=== PATIENT | male | born 1980 | race Two or more races ===

== ENCOUNTER 2017-03-08 10:59 | Inpatient (IN) | payer MEDICAID ==
[~2017-03-08] VITALS: Ht 154.9 cm; Wt 63.5 kg
[2017-03-08 11:20] VITALS: BP 122/68
[2017-03-08 12:11] LABS: BILIRUBIN, URINE NEGATIVE (NEGATIVE); COLOR,URINE PALE YELLOW; GLUCOSE, URINE (UA) NEGATIVE (NEGATIVE); KETONES,URINE 3+ (NEGATIVE); LEUKOCYTE ESTERASE ,URINE 1+ (NEGATIVE); NITRITE,URINE NEGATIVE (NEGATIVE); PH,URINE 7 (4.5-8.0); PROTEIN,URINE NEGATIVE (NEGATIVE); UROBILINOGEN,URINE NORMAL MG/DL (0.0-1.0)
[2017-03-08 12:14] LABS: APPEARANCE,URINE SLIGHTLY CLOUDY; BASOPHILS % (AUTO) 0.7 % (0.0-2.0); EOSINOPHILS % (AUTO) 0.1 % (0.0-3.0); HEMATOCRIT 47.7 % (42.0-52.0); HEMOGLOBIN 16.8 G/DL (14.2-18.0); LYMPHOCYTES % (AUTO) 8.1 % (20.0-45.0); MEAN CORPUSCULAR VOLUME 94 FL (80-99); MONOCYTES % (AUTO) 8.3 % (1.0-10.0); NEUTROPHILS % (AUTO) 82.8 % (45.0-75.0); PLATELET COUNT 266 K/UL (150-450); RED BLOOD COUNT 5.06 M/UL (4.70-6.10); RED CELL DISTRIBUTION WIDTH 10.8 % (11.6-14.8); WHITE BLOOD COUNT 14.7 K/UL (4.8-10.8)
--- NOTE | 2017-03-08 12:34 | Emergency Room Report ---
History of Present Illness General Chief Complaint: Abdominal Pain Source: Patient Present Illness HPI 36-year-old male with no sig pmhx p/w abdominal pain 2 days. Patient states pain started gradually, localized to mid and right lower part and , non radiating, sharp in nature, intermittent. No relieving or exacerbating factors. Severity is 5/10. 2-3 episodes of watery non bloody diarrhea Denies nv Denies fever, chills. No hx of abdominal surgeries. No hx of endoscopies/colonoscopies. Allergies: Coded Allergies: No Known Allergies (Unverified , 03/08/17) Patient History Past Medical History: see triage record Past Surgical History: none Pertinent Family History: none Reviewed Nursing Documentation: PMH: Agreed, PSxH: Agreed Nursing Documentation-PMH Past Medical History: No Stated History Review of Systems All Other Systems: negative except mentioned in HPI Physical Exam Vital Signs Date Time Temp Pulse Resp B/P (MAP) Pulse Ox O2 Delivery O2 Flow Rate FiO2 03/08/17 11:02 98.1 101 18 136/85 100 Room Air Sp02 EP Interpretation: reviewed, normal General Appearance: normal inspection, well appearing, no apparent distress, alert, GCS 15, non-toxic Head: normocephalic, atraumatic Eyes: bilateral eye normal inspection, bilateral eye PERRL, bilateral eye EOMI ENT: normal ENT inspection, normal pharynx, normal voice, moist mucus membranes Neck: normal inspection, full range of motion, supple Respiratory: normal inspection, lungs clear, normal breath sounds, no respiratory distress, no retraction, no wheezing, speaking full sentences, chest symmetrical Cardiovascular #1: normal inspection, regular rate, rhythm, no edema, normal capillary refill Cardiovascular #2: 2+ radial (R), 2+ radial (L) Gastrointestinal: soft, non-distended, no guarding, other - Mid and right lower quadrant tenderness, voluntary guarding, no rebound Genitourinary: no CVA tenderness Musculoskeletal: normal inspection, back normal, normal range of motion, non- tender Neurologic: normal inspection, alert, oriented x3, responsive, motor strength/ tone normal, sensory intact, normal gait, speech normal Psychiatric: normal inspection, judgement/insight normal, memory normal Skin: normal inspection, normal color, no rash, warm/dry, well hydrated, normal turgor Medical Decision Making Diagnostic Impression: Primary Impression: Diverticulitis ER Course 36-year-old male with abdominal pain Differential Diagnosis: Gastritis, gastroenteritis, appendicitis, diverticulitis, SBO, UTI/pyelo Plan: Basic labs, ua, ekg pain control, IVF CT abdopelvis ER course: Patient received IVF, abx tachycardic 109 despite fluids abd exam still operator but not peritoneal received IV abx CT abdo pelvis: diverticulitis w/ microperforation Disposition: Patient is to be admitted to med surg Endorsed to Dr Gómez who has accepted patient for admission Surgery paged and made aware of patient Please note that this Emergency Department Report was dictated using [employer] System[employer]ulverizing and sifting operator technology software, occasionally this can lead to erroneous entry secondary to interpretation by the dictation equipment EKG Diagnostic Results EP Interpretation: Yes Rate: normal Rhythm: NSR ST Segments: No acute changes ASA given to patient: no Rhythm Strip EP Interpretation: Yes Rate: 102 Rhythm: NSR, no PVCs, no ectopy Laboratory Tests Test 03/08/17 11:50 White Blood Count 14.7 K/UL (4.8-10.8) H Red Blood Count 5.06 M/UL (4.70-6.10) Hemoglobin 16.8 G/DL (14.2-18.0) Hematocrit 47.7 % (42.0-52.0) Mean Corpuscular Volume 94 FL (80-99) Mean Corpuscular Hemoglobin 33.2 PG (27.0-31.0) H Mean Corpuscular Hemoglobin Concent 35.3 G/DL (32.0-36.0) Red Cell Distribution Width 10.8 % (11.6-14.8) L Platelet Count 266 K/UL (150-450) Mean Platelet Volume 6.3 FL (6.5-10.1) L Neutrophils (%) (Auto) 82.8 % (45.0-75.0) H Lymphocytes (%) (Auto) 8.1 % (20.0-45.0) L Monocytes (%) (Auto) 8.3 % (1.0-10.0) Eosinophils (%) (Auto) 0.1 % (0.0-3.0) Basophils (%) (Auto) 0.7 % (0.0-2.0) Urine Color Pale yellow Urine Appearance Slightly cloudy Urine pH 7 (4.5-8.0) Urine Specific [place] 1.005 (1.005-1.035) Urine Protein Negative (NEGATIVE) Urine Glucose (UA) Negative (NEGATIVE) Urine Ketones 3+ (NEGATIVE) H Urine Occult Blood 2+ (NEGATIVE) H Urine Nitrite Negative (NEGATIVE) Urine Bilirubin Negative (NEGATIVE) Urine Urobilinogen Normal MG/DL (0.0-1.0) Urine Leukocyte Esterase 1+ (NEGATIVE) H Urine RBC 5-10 /HPF (0 - 0) H Urine WBC 0-2 /HPF (0 - 0) Urine Squamous Epithelial Cells Occasional /LPF Urine Bacteria Occasional /HPF (NONE) Sodium Level 138 MMOL/L (136-145) Potassium Level 3.9 MMOL/L (3.5-5.1) Chloride Level 102 MMOL/L (98-107) Carbon Dioxide Level 25 MMOL/L (21-32) Anion Gap 11 mmol/L (5-15) Blood Urea Nitrogen 16 mg/dL (7-18) Creatinine 1.0 MG/DL (0.55-1.30) Estimate Glomerular Filtration Rate > 60 mL/min (>60) Glucose Level 100 MG/DL (74-106) Calcium Level 9.4 MG/DL (8.5-10.1) Total Bilirubin 1.0 MG/DL (0.2-1.0) Aspartate Amino Transferase (AST) 77 U/L (15-37) H Alanine Aminotransferase (ALT) 77 U/L (12-78) Alkaline Phosphatase 80 U/L (46-116) Total Protein 8.2 G/DL (6.4-8.2) Albumin 3.9 G/DL (3.4-5.0) Globulin 4.3 g/dL Albumin/Globulin Ratio 0.9 (1.0-2.7) L Lipase 99 U/L (73-393) CT/MRI/US Diagnostic Results CT/MRI/US Diagnostic Results : Imaging Test Ordered: CT abdo pelvis Impression Findings: There is a mid sigmoid diverticulum. This is surrounded by inflammation of the pericolonic fat, and there is questionably some extraluminal gas adjacent to the diverticulum. Is also considerable wall thickening of the sigmoid. No discrete fluid collection demonstrated. A small amount of fluid is seen within the pelvis. The appendix is normal. Contrast is seen throughout the entirety of the small bowel and well into the midtransverse colon. No small bowel wall thickening. No free intraperitoneal air. The distal esophagus, stomach, duodenum are unremarkable. The liver, gallbladder, bile ducts, pancreas, spleen, adrenals, kidneys are unremarkable. No renal or ureteral calculi, hydronephrosis, or hydroureter. The bladder is unremarkable. No pelvic mass or adenopathy. No retroperitoneal or mesenteric mass or adenopathy. There is a calcified granuloma at the right lung base. The right lung demonstrate posterior dependent atelectatic changes. The bones are unremarkable. Impression: Findings consistent with acute diverticulitis. There is evidence of microperforation, but no evidence of peridiverticular abscess Small amount free pelvic fluid, likely related to the above Evidence of old granulomatous disease of the right Findings discussed by phone with Dr. Dale in the emergency room at the time of interpretation Last Vital Signs Date Time Temp Pulse Resp B/P (MAP) Pulse Ox O2 Delivery O2 Flow Rate FiO2 03/08/17 11:02 98.1 101 18 136/85 100 Room Air Disposition: ADMITTED INPATIENT Condition: Serious Referrals: NOT CHOSEN GORDON/,REFERRING (PCP) Domenic Dale M.D. Mar 08, 2017 12:34
[2017-03-08 12:35] LABS: ALANINE AMINOTRANSFERASE 77 U/L (12-78); ALBUMIN 3.9 G/DL (3.4-5.0); ALBUMIN/GLOBULIN RATIO 0.9 (1.0-2.7); ALKALINE PHOSPHATASE 80 U/L (46-116); ANION GAP 11 mmol/L (5-15); ASPARTATE AMINO TRANSFERASE 77 U/L (15-37); BLOOD UREA NITROGEN 16 mg/dL (7-18); CALCIUM 9.4 MG/DL (8.5-10.1); CARBON DIOXIDE 25 MMOL/L (21-32); CHLORIDE 102 MMOL/L (98-107); POTASSIUM 3.9 MMOL/L (3.5-5.1); SODIUM 138 MMOL/L (136-145)
[2017-03-08 13:00] VITALS: BP 113/67
[2017-03-08] MEDS ORDERED: cefTRIAXone 1 GM in NS 55 ML IVPB ONE (14:15)
--- NOTE | 2017-03-08 14:17 | Diagnostic Imaging Report ---
Clinical Indication: Abdominal pain x2 days, localized to mid and right lower quadrant, sharp in nature, intermittent, history episode of watery nonbloody diarrhea Technique: No oral contrast utilized, per emergency room physician request IV administration nonionic contrast. Venous phase spiral acquisition obtained through the abdomen and pelvis. Multiplanar reconstructions were generated. Total dose length product 597 mGycm. CTDIvol(s) 11 mGy. Dose reduction achieved using automated exposure control Comparison: None Findings: There is a mid sigmoid diverticulum. This is surrounded by inflammation of the pericolonic fat, and there is questionably some extraluminal gas adjacent to the diverticulum. Is also considerable wall thickening of the sigmoid. No discrete fluid collection demonstrated. A small amount of fluid is seen within the pelvis. The appendix is normal. Contrast is seen throughout the entirety of the small bowel and well into the midtransverse colon. No small bowel wall thickening. No free intraperitoneal air. The distal esophagus, stomach, duodenum are unremarkable. The liver, gallbladder, bile ducts, pancreas, spleen, adrenals, kidneys are unremarkable. No renal or ureteral calculi, hydronephrosis, or hydroureter. The bladder is unremarkable. No pelvic mass or adenopathy. No retroperitoneal or mesenteric mass or adenopathy. There is a calcified granuloma at the right lung base. The right lung demonstrate posterior dependent atelectatic changes. The bones are unremarkable. Impression: Findings consistent with acute diverticulitis. There is evidence of microperforation, but no evidence of peridiverticular abscess Small amount free pelvic fluid, likely related to the above Evidence of old granulomatous disease of the right Findings discussed by phone with Dr. Dale in the emergency room at the time of interpretation The CT scanner at [facility] is accredited by the [employer] and the scans are performed using protocols designed to limit radiation exposure to as low as reasonably achievable to attain images of sufficient resolution adequate for diagnostic evaluation.
[2017-03-08 15:00] VITALS: BP 114/69
[2017-03-08 16:43] VITALS: BP 116/73
[2017-03-08 16:50] VITALS: BP 113/59
[2017-03-08] MEDS ORDERED: ACETAMINOPHEN120 MG PO (17:10)
[2017-03-08] MEDS: Morphine Sulfate 4mg/ml Inj IVP PRN (17:44)
[2017-03-08] MEDS ORDERED: Flu Vaccine Quadrivalent 0.5ml IM ONE (18:00)
[2017-03-08] MEDS ORDERED: Acetaminophen 650 MG SUPP RECTAL PRN ×2 (18:45→19:00)
[2017-03-08] MEDS: D5 1/2NS w/KCl 20mEq 1,000 ML IV SCH (18:46)
--- NOTE | 2017-03-08 19:30 | History and Physical Report ---
DATE OF ADMISSION: 03/08/2017 CHIEF COMPLAINT/REASON FOR HOSPITALIZATION: The patient is admitted for abdominal pain. HISTORY OF PRESENT ILLNESS: The patient has abdominal pain for one to two days with about five loose diarrhea stools today and seven yesterday. He came to the emergency room and found to have mild sigmoid diverticulum surrounded by inflammation of the paracolonic fat and questionably some extraluminal gas adjacent to the diverticulum, but no free air. The patient is admitted for treatment of probable diverticulitis. He certainly has generally been in good health. PAST SURGICAL HISTORY: None. HOSPITALIZATIONS: None. MEDICATIONS: None. ALLERGIES: None known. HABITS: He is a nonsmoker. He drinks about two or three beers three times a week. SOCIAL HISTORY: He is and has children in [facility], last travel was August to September 2016 to [facility]. SYSTEM REVIEW: Negative except for the acute problem. PHYSICAL EXAMINATION: GENERAL: The patient is an alert, well-developed man, in no acute distress. He is seen after pain medication. HEAD, EYES, EARS, NOSE, AND THROAT: Sclerae are nonicteric. Ocular motions are intact in all directions. Oral mucosa moist. NECK: No adenopathy or thyroid enlargement. LUNGS: Clear. HEART: Regular rhythm. No murmur. ABDOMEN: Soft and nondistended. Liver and spleen not palpable. There is mild diffuse tenderness in the right lower quadrant and left lower quadrant, may be very early rebound tenderness. GENITOURINARY: Penis and testes normal. EXTREMITIES: No edema, cyanosis, or clubbing. PERTINENT LABORATORIES: White count 14.7 and hemoglobin 16.8. Electrolytes normal. AST is 77 and ALT 77. IMPRESSION: 1. Acute diverticulitis with microperforation. 2. Pain management. 3. Microscopic hematuria, 5-10 red cells per high-power field. PLAN: The patient will be kept NPO, hydrated. Start him on empiric antibiotics and comfort measures. Surgical consultation has been called. Vinh Gómez M.D. DR: LORENZO JOB#: [id number] CC:
--- NOTE | 2017-03-08 19:30 | History and Physical Report ---
DATE OF ADMISSION: 03/08/2017 CHIEF COMPLAINT/REASON FOR HOSPITALIZATION: The patient is admitted for abdominal pain. HISTORY OF PRESENT ILLNESS: The patient has abdominal pain for one to two days with about five loose diarrhea stools today and seven yesterday. He came to the emergency room and found to have mild sigmoid diverticulum surrounded by inflammation of the paracolonic fat and questionably some extraluminal gas adjacent to the diverticulum, but no free air. The patient is admitted for treatment of probable diverticulitis. He certainly has generally been in good health. PAST SURGICAL HISTORY: None. HOSPITALIZATIONS: None. MEDICATIONS: None. ALLERGIES: None known. HABITS: He is a nonsmoker. He drinks about two or three beers three times a week. SOCIAL HISTORY: He is and has children in [facility], last travel was August to September [address] [facility]. SYSTEM REVIEW: Negative except for the acute problem. PHYSICAL EXAMINATION: GENERAL: The patient is an alert, well-developed man, in no acute distress. He is seen after pain medication. HEAD, EYES, EARS, NOSE, AND THROAT: Sclerae are nonicteric. Ocular motions are intact in all directions. Oral mucosa moist. NECK: No adenopathy or thyroid enlargement. LUNGS: Clear. HEART: Regular rhythm. No murmur. ABDOMEN: Soft and nondistended. Liver and spleen not palpable. There is mild diffuse tenderness in the right lower quadrant and left lower quadrant, may be very early rebound tenderness. GENITOURINARY: Penis and testes normal. EXTREMITIES: No edema, cyanosis, or clubbing. PERTINENT LABORATORIES: White count 14.7 and hemoglobin 16.8. Electrolytes normal. AST is 77 and ALT 77. IMPRESSION: 1. Acute diverticulitis with microperforation. 2. Pain management. 3. Microscopic hematuria, 5-10 red cells per high-power field. PLAN: The patient will be kept NPO, hydrated. Start him on empiric antibiotics and comfort measures. Surgical consultation has been called. Vinh Gómez M.D. DR: LORENZO JOB#: [id number] CC:
[2017-03-08 20:00] VITALS: BP 118/67
--- NOTE | 2017-03-08 20:39 | Consultation ---
History of Present Illness General Date patient seen: Mar 08, 2017 Chief Complaint: Abdominal Pain Present Illness HPI 36M with 2-3 day history of worsening lower abdominal pain. As per patient, he was in his normal state of health until 3 days ago when he began to note some vague lower abdominal pain. over the subsequent day or two pain worsened to a point that he came to ED today for evaluation. pain described as 10/10 lower abdominal pain R>L cramping in nature with no radiation. no associated nausea or emesis. no fever or chills. does not e some diarrhea over the past two days. has never had similar symptoms. Allergies: Coded Allergies: No Known Allergies (Unverified , 03/08/17) Medication History Scheduled PRN Acetaminophen* (Tylenol*), 800 MG PO Q4H PRN for For Pain, (Reported) Patient History History Provided By: Patient Healthcare decision maker Resuscitation status Full Code Advanced Directive on File Past Medical/Surgical History Past Medical/Surgical History: (1) Diverticulitis Review of Systems All Other Systems: negative except mentioned in HPI Physical Exam General Appearance: no apparent distress, alert Lines, tubes and drains: peripheral HEENT: PERRL Neck: normal inspection Respiratory/Chest: normal breath sounds, no respiratory distress, no accessory muscle use Cardiovascular/Chest: normal peripheral pulses, normal rate, regular rhythm Abdomen: normal bowel sounds, soft, no organomegaly, no mass, other - soft, tender in lower abdomen R>L with mild rebound, voluntary guarding, no peritonitis. Extremities: normal inspection Skin Exam: warm/dry Neurologic: alert, oriented x 3 Last 24 Hour Vital Signs Date Time Temp Pulse Resp B/P (MAP) Pulse Ox O2 Delivery O2 Flow Rate FiO2 03/08/17 20:00 99.1 108 20 118/67 97 Room Air 108 03/08/17 16:50 99.2 106 18 113/59 99 Room Air 03/08/17 16:50 100.9 106 18 113/59 99 Room Air 03/08/17 16:43 100.9 109 22 116/73 100 Room Air 03/08/17 15:00 112 22 114/69 98 Room Air 03/08/17 13:00 104 18 113/67 99 Room Air 03/08/17 11:20 97.9 104 18 122/68 99 Room Air 03/08/17 11:02 98.1 101 18 136/85 100 Room Air Intake and Output 03/08/17 03/09/17 19:00 07:00 Intake Total 1180 ml 125 ml Balance 1180 ml 125 ml Intake IV Total 1180 ml 125 ml # Voids 2 Laboratory Tests Test 03/08/17 11:50 White Blood Count 14.7 K/UL (4.8-10.8) H Red Blood Count 5.06 M/UL (4.70-6.10) Hemoglobin 16.8 G/DL (14.2-18.0) Hematocrit 47.7 % (42.0-52.0) Mean Corpuscular Volume 94 FL (80-99) Mean Corpuscular Hemoglobin 33.2 PG (27.0-31.0) H Mean Corpuscular Hemoglobin Concent 35.3 G/DL (32.0-36.0) Red Cell Distribution Width 10.8 % (11.6-14.8) L Platelet Count 266 K/UL (150-450) Mean Platelet Volume 6.3 FL (6.5-10.1) L Neutrophils (%) (Auto) 82.8 % (45.0-75.0) H Lymphocytes (%) (Auto) 8.1 % (20.0-45.0) L Monocytes (%) (Auto) 8.3 % (1.0-10.0) Eosinophils (%) (Auto) 0.1 % (0.0-3.0) Basophils (%) (Auto) 0.7 % (0.0-2.0) Urine Color Pale yellow Urine Appearance Slightly cloudy Urine pH 7 (4.5-8.0) Urine Specific [place] 1.005 (1.005-1.035) Urine Protein Negative (NEGATIVE) Urine Glucose (UA) Negative (NEGATIVE) Urine Ketones 3+ (NEGATIVE) H Urine Occult Blood 2+ (NEGATIVE) H Urine Nitrite Negative (NEGATIVE) Urine Bilirubin Negative (NEGATIVE) Urine Urobilinogen Normal MG/DL (0.0-1.0) Urine Leukocyte Esterase 1+ (NEGATIVE) H Urine RBC 5-10 /HPF (0 - 0) H Urine WBC 0-2 /HPF (0 - 0) Urine Squamous Epithelial Cells Occasional /LPF Urine Bacteria Occasional /HPF (NONE) Sodium Level 138 MMOL/L (136-145) Potassium Level 3.9 MMOL/L (3.5-5.1) Chloride Level 102 MMOL/L (98-107) Carbon Dioxide Level 25 MMOL/L (21-32) Anion Gap 11 mmol/L (5-15) Blood Urea Nitrogen 16 mg/dL (7-18) Creatinine 1.0 MG/DL (0.55-1.30) Estimat Glomerular Filtration Rate > 60 mL/min (>60) Glucose Level 100 MG/DL (74-106) Calcium Level 9.4 MG/DL (8.5-10.1) Total Bilirubin 1.0 MG/DL (0.2-1.0) Aspartate Amino Transf (AST/SGOT) 77 U/L (15-37) H Alanine Aminotransferase (ALT/SGPT) 77 U/L (12-78) Alkaline Phosphatase 80 U/L (46-116) Total Protein 8.2 G/DL (6.4-8.2) Albumin 3.9 G/DL (3.4-5.0) Globulin 4.3 g/dL Albumin/Globulin Ratio 0.9 (1.0-2.7) L Lipase 99 U/L (73-393) Height (Feet): 5 Height (Inches): 1.00 Weight (Pounds): 140 Medications Current Medications Medications (Trade) Dose Ordered Sig/Bipin Route PRN Reason Start Time Stop Time Status Last Admin Dose Admin Acetaminophen (Tylenol) 650 mg Q4H PRN RECTAL Mild Pain (Pain Scale 1-3) 03/08/17 19:00 04/07/17 18:59 Acetaminophen (Tylenol) 650 mg Q6H PRN RECTAL Mild Pain/Temp > 100.5 03/08/17 18:45 04/07/17 18:44 Dextrose/ Electrolytes 1,000 ml @ 125 mls/hr Q8H IV 03/08/17 18:30 04/07/17 18:29 03/08/17 18:46 Heparin Sodium (Porcine) (Heparin 5000 units/ml) 5,000 units EVERY 12 HOURS SUBQ 03/08/17 21:00 04/07/17 20:59 Morphine Sulfate (Morphine Sulfate) 2 mg Q2H PRN IVP PRN MODERATE PAIN (4-6) 03/08/17 17:30 04/07/17 17:29 Morphine Sulfate (Morphine Sulfate) 4 mg Q2H PRN IVP PRN SEVERE PAIN 03/08/17 17:30 03/15/17 17:29 03/08/17 17:44 Ondansetron HCl (Zofran) 4 mg Q4H PRN IVP Nausea & Vomiting 03/08/17 18:00 04/07/17 17:59 Piperacillin/ Tazobactam/ Dextrose 50 ml @ 12.5 mls/hr Q8HR IVPB 03/08/17 22:00 03/15/17 21:59 Assessment/Plan Problem List: (1) Diverticulitis Assessment & Plan: 36M with acute uncomplicated diverticulitis with microperf and no abscess. low grade fevers, leukocytosis, CT and exam as above. -no acute surgical intervention necessary -medical management of acute uncomplicated diverticulitis -NPO until abdominal pain resolved -IV fluids -IV Abx -trend labs will follow. thank you for this consultation ICD Codes: K57.92 - Diverticulitis of intestine, part unspecified, without perforation or abscess without bleeding SNOMED: [id number] Status: stable Luiz Shaw Mar 08, 2017 20:39
[2017-03-08] MEDS: Zosyn 3.375gm/50ml Premix 50 ML IVPB SCH (21:04)
[2017-03-08] MEDS: Heparin 5000 units/ml inj SUBQ SCH (21:11)
[2017-03-09] VITALS: BP 114/58
[2017-03-09] MEDS: D5 1/2NS w/KCl 20mEq 1,000 ML IV SCH ×3 (02:30→18:19)
[2017-03-09 04:00] VITALS: BP 102/62
[2017-03-09] MEDS: Zosyn 3.375gm/50ml Premix 50 ML IVPB SCH ×3 (06:02→21:38)
[2017-03-09] MEDS: Morphine Sulfate 4mg/ml Inj IVP PRN ×3 (06:07→21:40)
[2017-03-09 06:57] LABS: ALANINE AMINOTRANSFERASE 51 U/L (12-78); ALBUMIN 2.8 G/DL (3.4-5.0); ALBUMIN/GLOBULIN RATIO 0.7 (1.0-2.7); ALKALINE PHOSPHATASE 65 U/L (46-116); ASPARTATE AMINO TRANSFERASE 28 U/L (15-37); BILIRUBIN,TOTAL 1.4 MG/DL (0.2-1.0); BLOOD UREA NITROGEN 10 mg/dL (7-18); CALCIUM 8.5 MG/DL (8.5-10.1); CARBON DIOXIDE 26 MMOL/L (21-32)
[2017-03-09 06:58] LABS: BILIRUBIN,DIRECT 0.3 MG/DL (0.0-0.3)
[2017-03-09 07:01] LABS: BASOPHILS % (AUTO) 0.5 % (0.0-2.0); EOSINOPHILS % (AUTO) 0.3 % (0.0-3.0); HEMATOCRIT 35.3 % (42.0-52.0); HEMOGLOBIN 12.7 G/DL (14.2-18.0); LYMPHOCYTES % (AUTO) 14.9 % (20.0-45.0); MEAN CORPUSCULAR VOLUME 92 FL (80-99); MONOCYTES % (AUTO) 7.7 % (1.0-10.0); NEUTROPHILS % (AUTO) 76.7 % (45.0-75.0); PLATELET COUNT 210 K/UL (150-450); RED BLOOD COUNT 3.82 M/UL (4.70-6.10); RED CELL DISTRIBUTION WIDTH 10.6 % (11.6-14.8); WHITE BLOOD COUNT 12.5 K/UL (4.8-10.8)
[2017-03-09 07:07] LABS: CHLORIDE 104 MMOL/L (98-107); POTASSIUM 3.7 MMOL/L (3.5-5.1); SODIUM 137 MMOL/L (136-145)
[2017-03-09 08:18] VITALS: BP 105/63
[2017-03-09] MEDS: Heparin 5000 units/ml inj SUBQ SCH ×2 (09:38→21:47)
--- NOTE | 2017-03-09 11:15 | General Progress Note ---
Progress Note Progress Note Surgery: no acute events. states pain improved. no n/v/f/c. low grade temp. leukocytosis improved. labs otherwise okay. exam stable and with mild lower abdominal tenderness. -continue with current care and management. keep npo for today continue IV fluids and IV Abx Luiz Shaw Mar 09, 2017 11:15
[2017-03-09 11:41] VITALS: BP 115/70
--- NOTE | 2017-03-09 14:34 | General Progress Note ---
Assessment/Plan Problem List: (1) Diverticulitis ICD Codes: K57.92 - Diverticulitis of intestine, part unspecified, without perforation or abscess without bleeding SNOMED: [id number] Assessment/Plan slightly less pain, keep npo, cont zosyn Subjective Constitutional: Reports: no symptoms HEENT: Reports: no symptoms Cardiovascular: Reports: no symptoms Respiratory: Reports: no symptoms Gastrointestinal/Abdominal: Reports: other - pain Genitourinary: Reports: no symptoms Neurologic/Psychiatric: Reports: no symptoms Endocrine: Reports: no symptoms Allergies: Coded Allergies: No Known Allergies (Unverified , 03/08/17) Objective Last 24 Hour Vital Signs Date Time Temp Pulse Resp B/P (MAP) Pulse Ox O2 Delivery O2 Flow Rate FiO2 03/09/17 11:41 98.0 81 19 115/70 97 Room Air 03/09/17 08:18 98.2 84 19 105/63 98 Room Air 03/09/17 04:00 98.4 84 18 102/62 97 Room Air 03/09/17 00:00 99.5 97 20 114/58 97 Room Air 03/08/17 20:00 99.1 108 20 118/67 97 Room Air 108 03/08/17 16:50 99.2 106 18 113/59 99 Room Air 03/08/17 16:50 100.9 106 18 113/59 99 Room Air 03/08/17 16:43 100.9 109 22 116/73 100 Room Air 03/08/17 15:00 112 22 114/69 98 Room Air Intake and Output 03/09/17 03/10/17 19:00 07:00 Intake Total 0 ml Output Total 300 ml Balance -300 ml Intake Oral 0 ml Output Urine Total 300 ml Laboratory Tests 03/09/17 04:45: White Blood Count 12.5H, Red Blood Count 3.82L, Hemoglobin 12.7L, Hematocrit 35.3L, Mean Corpuscular Volume 92, Mean Corpuscular Hemoglobin 33.2H, Mean Corpuscular Hemoglobin Concent 36.0, Red Cell Distribution Width 10.6L, Platelet Count 210, Mean Platelet Volume 6.5, Neutrophils (%) (Auto) 76.7H, Lymphocytes (%) (Auto) 14.9L, Monocytes (%) (Auto) 7.7, Eosinophils (%) (Auto) 0.3, Basophils (%) (Auto) 0.5, Sodium Level 137, Potassium Level 3.7, Chloride Level 104, Carbon Dioxide Level 26, Blood Urea Nitrogen 10, Creatinine 1.0, Estimat Glomerular Filtration Rate > 60, Glucose Level 124H, Calcium Level 8.5, Total Bilirubin 1.4H, Direct Bilirubin 0.3, Aspartate Amino Transf (AST/SGOT) 28 , Alanine Aminotransferase (ALT/SGPT) 51, Alkaline Phosphatase 65, Total Protein 6.6, Albumin 2.8L, Globulin 3.8, Albumin/Globulin Ratio 0.7L Height (Feet): 5 Height (Inches): 1.00 Weight (Pounds): 140 General Appearance: no apparent distress, alert EENT: PERRL/EOMI Neck: non-tender, normal alignment Cardiovascular: normal peripheral pulses, normal rate Respiratory/Chest: lungs clear Abdomen: other - tender rlq and llq Edema: no edema noted Arm (L), no edema noted Arm (R), no edema noted Leg (L), no edema noted Leg (R), no edema noted Pedal (L), no edema noted Pedal (R), no edema noted Generalized JUNIE DAVIS Mar 09, 2017 14:34
[2017-03-09 16:00] VITALS: BP 109/71
[2017-03-09 20:00] VITALS: BP 120/74
[2017-03-09] MEDS ORDERED: Tubing IV Secondary IV ONE (21:36)
[2017-03-10] VITALS: BP 115/62
[2017-03-10] MEDS: D5 1/2NS w/KCl 20mEq 1,000 ML IV SCH ×3 (02:30→17:36)
[2017-03-10 04:00] VITALS: BP 117/68
[2017-03-10] MEDS: Zosyn 3.375gm/50ml Premix 50 ML IVPB SCH ×3 (05:32→20:53)
[2017-03-10 08:00] VITALS: BP 107/77
[2017-03-10] MEDS: Morphine Sulfate 4mg/ml Inj IVP PRN ×2 (09:34→20:54)
[2017-03-10] MEDS: Heparin 5000 units/ml inj SUBQ SCH ×2 (09:34→20:54)
[2017-03-10 11:43] VITALS: BP 121/68
--- NOTE | 2017-03-10 13:31 | Cardiology Report ---
APPROVED REPORT EKG Measurement Heart [id number] Sinus tachycardia Nonspecific T wave abnormality Abnormal ECG
--- NOTE | 2017-03-10 13:31 | Cardiology Report ---
APPROVED REPORT EKG Measurement Heart [id number] Sinus tachycardia Nonspecific T wave abnormality Abnormal ECG
--- NOTE | 2017-03-10 13:31 | Cardiology Report ---
APPROVED REPORT EKG Measurement Heart [id number] [place] 156P38 [id number] Sinus tachycardia Nonspecific T wave abnormality Abnormal ECG
--- NOTE | 2017-03-10 14:33 | General Progress Note ---
Assessment/Plan Problem List: (1) Diverticulitis ICD Codes: K57.92 - Diverticulitis of intestine, part unspecified, without perforation or abscess without bleeding SNOMED: [id number] Assessment/Plan slightly less pain, start clears , cont zosyn Subjective Constitutional: Reports: no symptoms HEENT: Reports: no symptoms Cardiovascular: Reports: no symptoms Respiratory: Reports: no symptoms Gastrointestinal/Abdominal: Reports: abdominal pain Genitourinary: Reports: no symptoms Neurologic/Psychiatric: Reports: no symptoms Endocrine: Reports: no symptoms Hematologic/Lymphatic: Reports: no symptoms Allergies: Coded Allergies: No Known Allergies (Unverified , 03/08/17) Subjective less pain Objective Last 24 Hour Vital Signs Date Time Temp Pulse Resp B/P (MAP) Pulse Ox O2 Delivery O2 Flow Rate FiO2 03/10/17 11:43 98.0 72 19 121/68 99 Room Air 03/10/17 08:00 98.1 76 19 107/77 99 Room Air 03/10/17 04:00 98.1 78 20 117/68 97 Room Air 03/10/17 00:00 98.2 80 20 115/62 98 Room Air 03/09/17 20:00 99.1 86 20 120/74 98 Room Air 03/09/17 18:51 97.9 03/09/17 16:00 97.9 85 19 109/71 99 Room Air Height (Feet): 5 Height (Inches): 1.00 Weight (Pounds): 140 General Appearance: WD/WN, no apparent distress, alert EENT: PERRL/EOMI Neck: non-tender, normal alignment Cardiovascular: normal rate, regular rhythm Respiratory/Chest: lungs clear, normal breath sounds Abdomen: other - minimal tender Extremities: non-tender Edema: no edema noted Arm (L), no edema noted Arm (R), no edema noted Leg (L), no edema noted Leg (R), no edema noted Pedal (L), no edema noted Pedal (R), no edema noted Generalized JUNIE DAVIS Mar 10, 2017 14:33
[2017-03-10 15:21] VITALS: BP 97/60
--- NOTE | 2017-03-10 16:38 | General Progress Note ---
Progress Note Progress Note Surgery: doing well. pain almost completely resolved. no n/v/f/c. +flatus. hungry abdomen soft, nt/nd, bs+ afebrile, HD stable, improving 36M with acute uncomplicated diverticulitis with microperf but no abscess. Hinchey stage 1a. Improving -continue IV abx -start clear liquids today -if all goes well will plan to advance to soft diet this weekend and possible d/ c home this weekend with oral Abx. Luiz Shaw Mar 10, 2017 16:38
[2017-03-10 20:00] VITALS: BP 102/63
[2017-03-11] VITALS: BP 106/72
[2017-03-11] MEDS: Morphine Sulfate 4mg/ml Inj IVP PRN (03:30)
[2017-03-11 04:00] VITALS: BP 99/57
[2017-03-11] MEDS: D5 1/2NS w/KCl 20mEq 1,000 ML IV SCH (06:20)
[2017-03-11] MEDS: Zosyn 3.375gm/50ml Premix 50 ML IVPB SCH (06:56)
[2017-03-11 07:50] LABS: BASOPHILS % (AUTO) 1.2 % (0.0-2.0); EOSINOPHILS % (AUTO) 2.4 % (0.0-3.0); HEMATOCRIT 42.7 % (42.0-52.0); HEMOGLOBIN 14.5 G/DL (14.2-18.0); LYMPHOCYTES % (AUTO) 22.6 % (20.0-45.0); MEAN CORPUSCULAR VOLUME 95 FL (80-99); MONOCYTES % (AUTO) 9.9 % (1.0-10.0); NEUTROPHILS % (AUTO) 63.9 % (45.0-75.0); PLATELET COUNT 261 K/UL (150-450); RED BLOOD COUNT 4.52 M/UL (4.70-6.10); WHITE BLOOD COUNT 7.7 K/UL (4.8-10.8)
[2017-03-11 07:57] LABS: ANION GAP 7 mmol/L (5-15); BLOOD UREA NITROGEN 9 mg/dL (7-18); CALCIUM 9.3 MG/DL (8.5-10.1); CARBON DIOXIDE 29 MMOL/L (21-32); CHLORIDE 103 MMOL/L (98-107); CREATININE 1.1 MG/DL (0.55-1.30); POTASSIUM 3.7 MMOL/L (3.5-5.1); SODIUM 138 MMOL/L (136-145)
[2017-03-11 08:02] VITALS: BP 107/69
[2017-03-11] MEDS: Heparin 5000 units/ml inj SUBQ SCH (08:16)
[2017-03-11] MEDS ORDERED: Triamcinolone 0.1% 15gm Cr TOPIC SCH ×2 (09:45→13:00)
[2017-03-11] MEDS ORDERED: CLEOCIN HCL300 MG PO (09:56)
[2017-03-11] MEDS ORDERED: KENALOG 0.025%15 GM APPLIC (09:57)
--- NOTE | 2017-03-11 20:30 | Discharge Summary ---
DATE OF ADMISSION: 03/08/2017 DATE OF DISCHARGE: 03/11/2017 PERTINENT HISTORY: The patient presents with abdominal pain. He was seen in the emergency room and found to have evidence of diverticulitis in the emergency room with possible microperforation, but no evidence of peridiverticular abscess. Pertinent physical findings, the patient had mild diffuse abdominal pain. COURSE IN THE HOSPITAL: The patient was initially placed on NPO and given antibiotics with Zosyn. He had improvement of his pain and started on clear liquids and advance to a soft diet. He felt much improved and was discharged home in improved condition. FINAL DIAGNOSES: 1. Acute diverticulitis. 2. Pain control. DISCHARGE DISPOSITION: He was discharged home on a diet to avoid nuts and similar foods and amoxicillin 500 mg t.i.d. for seven days. He is to follow up with his primary care physician. Call the office with Dr. Gómez for an appointment as needed. Vinh Gómez M.D. DR: Daisy JOB#: [id number] CC:
== END 2017-03-11 11:05 | disposition home or self-care (01) | DRG 244 ==
LOC: EMR 11:50 → 4E 14:47 → EDBEDREQ 15:09
DX: K57.80 Diverticulitis of intestine, part unspecified, with perforation and abscess without bleeding (principal); Z23 Encounter for immunization
CPT/HCPCS: 36415; 74177; 80048; 80053; 81003; 82248; 83690; 85025; 90630; 93005; 99285

== ENCOUNTER 2017-09-27 16:40 | Emergency (ER) | payer SELFPAY ==
[~2017-09-27] VITALS: Ht 157.5 cm; Wt 68.0 kg
[~2017-09-27 16:40] MED LIST: ACETAMINOPHEN120 MG PO; CLEOCIN HCL300 MG PO; KENALOG 0.025%15 GM APPLIC
[2017-09-27] MEDS ORDERED: NKM (16:50)
[2017-09-27 16:57] VITALS: BP 136/99
--- NOTE | 2017-09-27 16:59 | Emergency Room Report ---
History of Present Illness General Chief Complaint: Abdominal Pain Source: Patient, Medical Record Present Illness HPI 37-year-old male patient presents ER complaining of abdominal pain and blood on toilet paper when wiping. denies history of hemorrhoids. Patient reports history of diverticulitis, reports previously seen in this ER at the end of last year for similar symptoms. Patient denies fever. Patient patient denies diarrhea. Denies chest pain, shortness of breath. Patient also complaining of hematuria one month ago, denies symptoms acutely at this time. Patient denies dysuria, hematuria. reports has not followed up with primary care provider due to lack of insurance. Allergies: Coded Allergies: No Known Allergies (Unverified , 03/08/17) Patient History Past Medical History: see triage record Reviewed Nursing Documentation: PMH: Agreed; PSxH: Agreed Nursing Documentation-PMH Past Medical History: No History, Except For Hx Cancer: No Hx Neurological Problems: No Review of Systems All Other Systems: negative except mentioned in HPI Physical Exam Vital Signs Date Time Temp Pulse Resp B/P (MAP) Pulse Ox O2 Delivery O2 Flow Rate FiO2 09/27/17 16:44 98.1 82 18 136/99 98 Room Air 98.1 Sp02 EP Interpretation: reviewed, normal General Appearance: well appearing, no apparent distress, alert, GCS 15, non- toxic Head: normocephalic, atraumatic Eyes: bilateral eye normal inspection, bilateral eye PERRL ENT: hearing grossly normal, normal pharynx, no angioedema, normal voice, uvula midline, moist mucus membranes Neck: full range of motion Respiratory: lungs clear, normal breath sounds, no rhonchi, no respiratory distress, no accessory muscle use, no wheezing, speaking full sentences Cardiovascular #1: regular rate, rhythm, no edema Cardiovascular #2: 2+ radial (R), 2+ radial (L) Gastrointestinal: soft, no mass, non-distended, no guarding, no rebound, tenderness - generalized, other - negative Carlin, negative Rovsing Rectal: normal rectal tone, heme negative stool, prostate non-tender, other - no palpable hemorrhoids, no anal fissure Genitourinary: no CVA tenderness Musculoskeletal: back normal, digits/nails normal, gait/station normal, normal range of motion, non-tender Neurologic: alert, oriented x3, responsive, motor strength/tone normal, sensory intact Psychiatric: mood/affect normal Skin: no rash Medical Decision Making PA Attestation Dr. Cramer is my supervising Physician whom patient management has been discussed with. Diagnostic Impression: Primary Impression: Diverticulitis ER Course Pt. presents to the ED c/o abdominal pain and vomiting. Ddx considered but are not limited to UTI, cholelithiasis, cholecystitis, pancreatitis, appendicitis, diverticulitis. Generalized abdominal pain on physical examination, no pain with distraction, negative Carlin, negative Rovsing. Begin abdominal pain workup. Provided patient with pain medication. Vital signs: are WNL, pt. is afebrile ORDERS: CBC, CMP, Lipase, UA, CT abdomen pelvis, GI cocktail and pain medication. ER COURSE: labs unremarkable, no elevation in WBCs or LFTs lipase within normal range urinalysis negative occult stool negative CT abdomen shows mild sigmoid diverticulitis for scarring or chronic changes. Consult with Dr. Cramer, will treat for diverticulitis outpatient with antibiotics. copy of CT report provided to patient. rectal exam, no evidence of fissure or hemorrhoids, prostate normal. Symptoms likely related to diverticulitis, will provide outpatient treatment. instructed patient to follow with GI specialist to evaluate for possible hemorrhoids. No evidence of hemorrhoids at this time. patient instructed to follow-up with primary care provider, need referral to GI specialist. Patient provided with contact information for free or low cost healthcare clinics. ER precautions given DISCHARGE: Rx provided for Tylenol Rx provided for metronidazole, do not drink alcohol while on metronidazole. Rx provided for Cipro At this time pt. is stable for d/c to home. Patient resting comfortably, in no acute distress, nontoxic appearing, talking without difficulty. Rx provided to patient. Patient to take medications as instructed Will provide with patient care instructions and any necessary prescriptions. Care plan and follow-up instructions provided. Patient instructed to follow-up with primary care provider in 3 - 5 days. Patient questions asked and answered. Patient reports understanding and agreement to treatment plan. ER precautions given. Patient instructed to return to ER immediately for any new or worsening of symptoms including but not limited to increasing SOB, persistent fever, worsening of pain symptoms, intractable vomiting, blood in stool, urine, and/or emesis. - Please note that this Emergency Department Report was dictated using [employer] technology software, occasionally this can lead to erroneous entry secondary to interpretation by the dictation equipment. Labs Test 09/27/17 17:05 White Blood Count 7.5 K/UL (4.8-10.8) Red Blood Count 5.20 M/UL (4.70-6.10) Hemoglobin 16.2 G/DL (14.2-18.0) Hematocrit 47.6 % (42.0-52.0) Mean Corpuscular Volume 91 FL (80-99) Mean Corpuscular Hemoglobin 31.2 PG (27.0-31.0) Mean Corpuscular Hemoglobin Concent 34.1 G/DL (32.0-36.0) Red Cell Distribution Width 10.7 % (11.6-14.8) Platelet Count 296 K/UL (150-450) Mean Platelet Volume 5.8 FL (6.5-10.1) Neutrophils (%) (Auto) 56.1 % (45.0-75.0) Lymphocytes (%) (Auto) 32.6 % (20.0-45.0) Monocytes (%) (Auto) 9.0 % (1.0-10.0) Eosinophils (%) (Auto) 0.5 % (0.0-3.0) Basophils (%) (Auto) 2.0 % (0.0-2.0) Prothrombin Time 9.6 SEC (9.30-11.50) Prothromb Time International Ratio 0.9 (0.9-1.1) Activated Partial Thromboplast Time 27 SEC (23-33) Urine Color Pale yellow Urine Appearance Clear Urine pH 7 (4.5-8.0) Urine Specific [place] 1.005 (1.005-1.035) Urine Protein Negative (NEGATIVE) Urine Glucose (UA) Negative (NEGATIVE) Urine Ketones Negative (NEGATIVE) Urine Occult Blood Negative (NEGATIVE) Urine Nitrite Negative (NEGATIVE) Urine Bilirubin Negative (NEGATIVE) Urine Urobilinogen Normal MG/DL (0.0-1.0) Urine Leukocyte Esterase Negative (NEGATIVE) Sodium Level 139 MMOL/L (136-145) Potassium Level 3.9 MMOL/L (3.5-5.1) Chloride Level 103 MMOL/L (98-107) Carbon Dioxide Level 27 MMOL/L (21-32) Anion Gap 9 mmol/L (5-15) Blood Urea Nitrogen 11 mg/dL (7-18) Creatinine 0.8 MG/DL (0.55-1.30) Estimat Glomerular Filtration Rate > 60 mL/min (>60) Glucose Level 88 MG/DL (74-106) Calcium Level 9.0 MG/DL (8.5-10.1) Total Bilirubin 0.6 MG/DL (0.2-1.0) Aspartate Amino Transf (AST/SGOT) 27 U/L (15-37) Alanine Aminotransferase (ALT/SGPT) 44 U/L (12-78) Alkaline Phosphatase 70 U/L (46-116) Total Protein 8.4 G/DL (6.4-8.2) Albumin 3.9 G/DL (3.4-5.0) Globulin 4.5 g/dL Albumin/Globulin Ratio 0.9 (1.0-2.7) Lipase 120 U/L (73-393) CT/MRI/US Diagnostic Results CT/MRI/US Diagnostic Results : Imaging Test Ordered: CT abdomen Impression Possible mild sigmoid diverticulitis, versus scarring or chronic changes. No abscess or free air. Mildly thickened descending/sigmoid colon which may be underdistention versus colitis. No appendicitis or SBO. No hydronephrosis or ureteral calculus. Unremarkable gallbladder and pancreas. Last Vital Signs Date Time Temp Pulse Resp B/P (MAP) Pulse Ox O2 Delivery O2 Flow Rate FiO2 09/27/17 16:44 98.1 82 18 136/99 98 Room Air 98.1 Disposition: HOME, SELF-CARE Condition: Stable Scripts Acetaminophen* (TYLENOL EXTRA STRENGTH*) 500 Mg Tablet 500 MG ORAL Q8H PRN for Prn Headache/Temp > 101, #30 TAB 0 Refills Prov: Watson Hirsch P.A. 09/27/17 Metronidazole* (FLAGYL*) 500 Mg Tablet 500 MG ORAL EVERY 8 HOURS for 7 Days, #21 TAB Prov: Watson Hirsch P.A. 09/27/17 Ciprofloxacin Hcl* (CIPROFLOXACIN HCL*) 500 Mg Tablet 500 MG ORAL EVERY 12 HOURS, #14 TAB 0 Refills Prov: Watson Hirsch P.A. 09/27/17 Patient Instructions: Diverticulitis, [id number] Additional Instructions: Followup with primary care provider in 3 -5 days. Request referral to GI specialist. Do not strain with bowel movements. Take medications as directed. Do not drink alcohol while taking metronidazole. Patient questions asked and answered. ER precautions given, patient instructed to return to ER immediately for any new or worsening of symptoms including but not limited to sharp abdominal pain, chest pain, shortness of breath. Watson Hirsch September 27, 2017 16:59
[2017-09-27 17:42] LABS: APPEARANCE,URINE CLEAR; BILIRUBIN, URINE NEGATIVE (NEGATIVE); COLOR,URINE PALE YELLOW; EOSINOPHILS % (AUTO) 0.5 % (0.0-3.0); GLUCOSE, URINE (UA) NEGATIVE (NEGATIVE); HEMATOCRIT 47.6 % (42.0-52.0); HEMOGLOBIN 16.2 G/DL (14.2-18.0); KETONES,URINE NEGATIVE (NEGATIVE); LEUKOCYTE ESTERASE ,URINE NEGATIVE (NEGATIVE); LYMPHOCYTES % (AUTO) 32.6 % (20.0-45.0); MEAN CORPUSCULAR VOLUME 91 FL (80-99); NEUTROPHILS % (AUTO) 56.1 % (45.0-75.0); NITRITE,URINE NEGATIVE (NEGATIVE); PH,URINE 7 (4.5-8.0); PLATELET COUNT 296 K/UL (150-450); PROTEIN,URINE NEGATIVE (NEGATIVE); RED CELL DISTRIBUTION WIDTH 10.7 % (11.6-14.8); UROBILINOGEN,URINE NORMAL MG/DL (0.0-1.0); WHITE BLOOD COUNT 7.5 K/UL (4.8-10.8)
[2017-09-27 17:51] LABS: INR 0.9 (0.9-1.1)
[2017-09-27 17:59] LABS: ANION GAP 9 mmol/L (5-15); BLOOD UREA NITROGEN 11 mg/dL (7-18); CARBON DIOXIDE 27 MMOL/L (21-32); CHLORIDE 103 MMOL/L (98-107); CREATININE 0.8 MG/DL (0.55-1.30); POTASSIUM 3.9 MMOL/L (3.5-5.1); SODIUM 139 MMOL/L (136-145)
[2017-09-27 18:04] LABS: ALANINE AMINOTRANSFERASE 44 U/L (12-78); ALBUMIN 3.9 G/DL (3.4-5.0); ALBUMIN/GLOBULIN RATIO 0.9 (1.0-2.7); ALKALINE PHOSPHATASE 70 U/L (46-116); ASPARTATE AMINO TRANSFERASE 27 U/L (15-37); BILIRUBIN,TOTAL 0.6 MG/DL (0.2-1.0)
[2017-09-27] MEDS ORDERED: Ketorolac 30mg Inj IM ONE (18:15)
[2017-09-27] MEDS ORDERED: METRONIDAZOLE500 MG ORAL (18:49)
[2017-09-27] MEDS ORDERED: CIPROFLOXACIN500 M2 ORAL (18:49)
[2017-09-27] MEDS ORDERED: TYLENOL EXTRA500 MG ORAL (18:59)
[2017-09-27 19:09] VITALS: BP 130/89
--- NOTE | 2017-09-28 09:39 | Diagnostic Imaging Report ---
Indication: Abdominal pain Technique: Continuous helical transaxial imaging of the abdomen and pelvis was obtained from the lung bases to the pubic symphysis. No intravenous contrast was administered. Coronal 2-D reformats were also obtained. Automatic Exposure Control was utilized. Total Dose length Product (DLP): 602.[address] Dose Index Volume (CTDIvol): 12.1 mGy Comparison: none Findings: The lung bases are clear. There is no free fluid. Normal appendix demonstrated. Few diverticula demonstrated in the colon. No definite acute diverticulitis identified. No free fluid or free air identified. No hydronephrosis or renal stones identified. Gallbladder is unremarkable. Lung bases are clear. IMPRESSION: Mild diverticulosis of the colon. No definite diverticulitis. Normal appendix. The CT scanner at [facility] is accredited by the [employer] and the scans are performed using dose optimization techniques as appropriate to a performed exam including Automatic Exposure control.
== END 2017-09-27 19:11 | disposition home or self-care (01) ==
LOC: EMR 16:57
DX: K57.32 Diverticulitis of large intestine without perforation or abscess without bleeding (principal)
CPT/HCPCS: 36415; 74176; 80053; 81003; 83690; 85025; 85610; 85730; 96360; 96372; 96374; 99284; J1885